=== PATIENT | male | born 1965 | race African-American/Black ===

== ENCOUNTER 2019-03-28 18:44 | Emergency (ER) | payer MEDICARE ==
[~2019-03-28] VITALS: Ht 182.9 cm; Wt 63.5 kg
[2019-03-28 18:44] VITALS: BP 175/90
--- NOTE | 2019-03-28 18:44 | NUR ---
ED Nurse Note: PT BROUGHT IN BY RA 826 FROM HOME CAME IN DUE TO ABD PAIN WITH N/V THAT STARTED 1200 NOON TODAY. DENIES DIARRHEA AND STATES HE USED COCAINE YESTERDAY MORNING. AAO X4, FOLLOWS COMMANDS. NO ACTIVE VOMITING AT THIS TIME.
--- NOTE | 2019-03-28 19:00 | Emergency Room Report ---
History of Present Illness General Chief Complaint: Nausea, Vomiting, and Diarrhea Source: Patient Present Illness HPI Disclaimer: Please note that this report is being documented using DRAGON technology. This can lead to erroneous entry secondary to incorrect interpretation by the dictating instrument. HPI: 53-year-old male with a history of HIV on HAART, asthma, CAD with reported stenting x2 presents for evaluation of abdominal pain and vomiting. Symptoms began this afternoon. The patient states he has been using crack cocaine which he has done for many years and was checking himself into rehabilitation program at [facility]. There was no space available though he did receive a sandwich for lunch. He states that immediately after eating the sandwich he began to feel nausea and persistent nonbloody, nonbilious emesis. He denies diarrhea but feels that it could "come on any minutes." He notes upper abdominal cramping but no significant pain in the lower quadrants. Denies dysuria or hematuria. Denies flank pain. He denies chest pain, shortness of breath, fevers. He reports chills. PMH: HIV, asthma, CAD PSH: Cardiac stent x2 Allergies: Denies Social Hx: Regular cocaine use, denies alcohol or tobacco use Allergies: Coded Allergies: No Known Allergies (Unverified , 03/28/19) Nursing Documentation-PMH Hx Hypertension: Yes Hx Asthma: Yes Review of Systems All Other Systems: negative except mentioned in HPI Physical Exam Vital Signs Date Time Temp Pulse Resp B/P (MAP) Pulse Ox O2 Delivery O2 Flow Rate FiO2 03/28/19 18:32 100.6 89 16 142/76 (98) 99 Room Air General: Awake and alert, no acute distress, febrile HEENT: NC/AT. EOMI. Cardiovascular: RRR. S1 and S2 normal. No murmur appreciated Resp: Normal work of breathing. No cough, wheezing or crackles appreciated Abdomen: Abdomen is soft, nondistended. Mild guarding in the upper quadrants. No rebound. Negative Borges's. Skin: Intact. No abrasions, laceration or rash over the exposed skin MSK: Normal tone and bulk. Moving all extremities. No obvious deformity. Neuro: Awake and alert. Mentating appropriately. Medical Decision Making Diagnostic Impression: Primary Impression: Nausea, vomiting, and diarrhea ER Course 53-year-old male with history of HIV, substance abuse, asthma and CAD presents for evaluation of sudden onset nausea and vomiting shortly after eating a sandwich earlier today. He arrives with slight elevation in his body temperature at 100.4 F however he is wearing multiple layers and shivering in bed complaining of significant Reiger since his symptom onset. Vital signs are otherwise within normal limits. He was resting comfortably on my evaluation and asking for something to drink noting significant dehydration. Will obtain labs, start IV fluids, provide antiemetics. We will also obtain an EKG given his history of heart disease as this may be an atypical presentation. EKG Diagnostic Results EKG Time: 19:01 Rate: normal Rhythm: NSR ST Segments: no acute changes Other Impression Sinus rhythm, normal axis, normal intervals, no acute ST segment changes. There are Q waves in the inferior leads, II, room 3, aVF as well as V3 through V6 consistent with prior infarct though age-indeterminate. Rhythm Strip Diag. Results Rhythm Strip Time: 19:01 EP Interpretation: yes Rate: 80s Rhythm: NSR, no PVC's, no ectopy Reevaluation Time: 21:36 Last Vital Signs Date Time Temp Pulse Resp B/P (MAP) Pulse Ox O2 Delivery O2 Flow Rate FiO2 03/28/19 18:32 100.6 89 16 142/76 (98) 99 Room Air Reevaluation Impression Labs have returned within normal limits. No significant white count, no electro light abnormalities. Liver function is unremarkable as his kidney function. No evidence of gross urinary tract infection. Patient's tox screen shows no alcohol, no salicylates, no Tylenol. Tox screen positive for cocaine to which the patient admits. He reports feeling much better after receiving antiemetics and IV fluids. Likely, this is a viral syndrome which should improve over the next few days peer he will be discharged home with outpatient follow-up and continued antiemetics. I encouraged him to stay hydrated by drinking plenty of fluids and I discussed this treatment plan with the patient' s mother who is now at bedside as well. We also discussed reasons to return to the emergency department. He understands and agrees with the treatment plan will be discharged home. Disposition: HOME, SELF-CARE Condition: Improved Scripts Ondansetron Odt* (ZOFRAN ODT*) 4 Mg Tab.rapdis 4 MG BC EVERY 6 HOURS PRN for Nausea & Vomiting, #20 TAB 0 Refills Prov: Prasanna Meza MD 03/28/19 Prasanna Meza MD Mar 28, 2019 19:00
--- NOTE | 2019-03-28 19:02 | NUR ---
ED Nurse Note: COLLECTED BLOOD THEN SENT TO LAB.
--- NOTE | 2019-03-28 19:39 | NUR ---
HAND-OFF: Report given to PEDRO FRENCH.
[2019-03-28 20:11] LABS: BASOPHILS % (AUTO) 0.4 % (0.0-2.0); EOSINOPHILS % (AUTO) 6.4 % (0.0-3.0); HEMATOCRIT 41.1 % (42.0-52.0); HEMOGLOBIN 14.1 G/DL (14.2-18.0); LYMPHOCYTES % (AUTO) 5.7 % (20.0-45.0); MEAN CORPUSCULAR VOLUME 95 FL (80-99); MONOCYTES % (AUTO) 4.9 % (1.0-10.0); NEUTROPHILS % (AUTO) 82.5 % (45.0-75.0); PLATELET COUNT 197 K/UL (150-450); RED BLOOD COUNT 4.31 M/UL (4.70-6.10); RED CELL DISTRIBUTION WIDTH 11.2 % (11.6-14.8); WHITE BLOOD COUNT 8.9 K/UL (4.8-10.8)
[2019-03-28 20:20] LABS: ANION GAP 8 mmol/L (5-15); BLOOD UREA NITROGEN 19 mg/dL (7-18); CALCIUM 8.9 MG/DL (8.5-10.1); CARBON DIOXIDE 29 MMOL/L (21-32); CHLORIDE 107 MMOL/L (98-107); CREATININE 1.1 MG/DL (0.55-1.30); POTASSIUM 4.1 MMOL/L (3.5-5.1); SODIUM 144 MMOL/L (136-145)
[2019-03-28 20:24] LABS: ALANINE AMINOTRANSFERASE 13 U/L (12-78); ALBUMIN 3.3 G/DL (3.4-5.0); ALBUMIN/GLOBULIN RATIO 0.8 (1.0-2.7); ALKALINE PHOSPHATASE 88 U/L (46-116); ASPARTATE AMINO TRANSFERASE 25 U/L (15-37); BILIRUBIN,TOTAL 0.3 MG/DL (0.2-1.0)
[2019-03-28 20:58] LABS: APPEARANCE,URINE CLEAR; BILIRUBIN, URINE NEGATIVE (NEGATIVE); COLOR,URINE PALE YELLOW; GLUCOSE, URINE (UA) NEGATIVE (NEGATIVE); KETONES,URINE NEGATIVE (NEGATIVE); LEUKOCYTE ESTERASE ,URINE NEGATIVE (NEGATIVE); NITRITE,URINE NEGATIVE (NEGATIVE); PH,URINE 8 (4.5-8.0); PROTEIN,URINE NEGATIVE (NEGATIVE); UROBILINOGEN,URINE NORMAL MG/DL (0.0-1.0)
[2019-03-28] MEDS ORDERED: ONDANSETRON ODT4 MG BC (21:33)
[2019-03-28 21:45] VITALS: BP 175/90
--- NOTE | 2019-03-28 21:45 | NUR ---
ER DISCHARGE NOTE: Patient is cleared to be discharged per ERMD, pt is aox4, on room air, with stable vital signs. pt was given dc and prescription instructions, pt was able to verbalize understanding, pt id band and iv site removed without complications. pt is able to ambulate with steady gait. pt took all belongings.
--- NOTE | 2019-03-30 15:23 | Cardiology Report ---
APPROVED REPORT EKG Measurement Heart [id number] Normal sinus rhythm Cannot rule out Anterior infarct, age undetermined Abnormal ECG
== END 2019-03-28 21:45 | disposition home or self-care (01) ==
LOC: EDBD 18:44 → EMR 20:45
DX: R11.2 Nausea with vomiting, unspecified (principal); R19.7 Diarrhea, unspecified; B20 Human immunodeficiency virus [HIV] disease; I10 Essential (primary) hypertension; Z95.5 Presence of coronary angioplasty implant and graft; I25.10 Atherosclerotic heart disease of native coronary artery without angina pectoris; I11.9 Hypertensive heart disease without heart failure
CPT/HCPCS: 36415; 80053; 80307; 81003; 83690; 84484; 85025; 93005; 96361; 96374; 99284; G0480; J2405; J7030

== ENCOUNTER 2019-05-17 17:32 | Inpatient (IN) | payer MEDICARE, OTHER ==
[~2019-05-17] VITALS: Ht 182.9 cm; Wt 70.3 kg
[~2019-05-17 17:32] MED LIST: ONDANSETRON ODT4 MG BC
--- NOTE | 2019-05-17 17:32 | NUR ---
ED Nurse Note: Pt was BIBA from home with the c/o Hip and back pain with 7/10 pain scale. Per pt, he had a fall few days ago. Pt has hx of HIV, HTN. AOx3; calm and cooperative. Placed on bed and gown, hooked to laboratory monitor. VSS; no signs of acute distress. Will continue to monitor.
--- NOTE | 2019-05-17 18:05 | Emergency Room Report ---
History of Present Illness General Chief Complaint: Lower Extremity Injury Source: Patient Present Illness HPI 53-year-old male history of hypertension, hyperlipidemia, stents, presents with right hip pain, multiple falls, shortness of breath, and vague chest pain x3 days, aggravated with exertion alleviated with rest severity is moderate, constant patient presents for evaluation Allergies: Coded Allergies: No Known Allergies (Unverified , 03/28/19) Patient History Past Medical History: see triage record Reviewed Nursing Documentation: PMH: Agreed; PSxH: Agreed Nursing Documentation-PMH Past Medical History: No History, Except For Hx Hypertension: Yes Hx Asthma: Yes Review of Systems All Other Systems: negative except mentioned in HPI Physical Exam Vital Signs Date Time Temp Pulse Resp B/P (MAP) Pulse Ox O2 Delivery O2 Flow Rate FiO2 05/17/19 17:28 97.9 111 18 128/78 (95) 96 Room Air Sp02 EP Interpretation: reviewed, normal General Appearance: well appearing, no apparent distress, alert Head: normocephalic, atraumatic Eyes: bilateral eye PERRL, bilateral eye EOMI ENT: uvula midline, moist mucus membranes Neck: supple, thyroid normal, supple/symm/no masses Respiratory: lungs clear, no respiratory distress, no retraction, no accessory muscle use Cardiovascular #1: normal peripheral pulses, regular rate, rhythm, no edema, no gallop, no murmur Gastrointestinal: non tender, soft, no guarding, no rebound Musculoskeletal: normal inspection Neurologic: alert, oriented x3 Psychiatric: mood/affect normal Skin: no rash, warm/dry Medical Decision Making Diagnostic Impression: Primary Impression: Chest pain Qualified Codes: R07.9 - Chest pain, unspecified ER Course 53-year-old male presents with atypical chest pain, aspirin given, patient also with hip pain, differential diagnosis for chest pain includes ACS, pneumonia, pneumothorax, patient with hip pain which may be arthritis versus fracture X-ray of the hip is negative, patient has a positive drug screen Patient will be admitted for ACS rule out Patient admitted to Dr. Holguin Procedure: XRAY Bilateral Hip w/AP Pelvis History: PAIN 3 total images; AP view of the pelvis, frog leg lateral of the right and frog-leg lateral of the left hip Exam: XR LEFT HIP Comparison: None available FINDINGS: No fracture or dislocation. The joint spaces appear within limits. Symmetric appearing SI joints and pubic symphysis appear within limits. IMPRESSION: No fracture or dislocation. Exam: XR RIGHT HIP Comparison: None available FINDINGS: No fracture or dislocation. The joint space appears within limits. IMPRESSION: No fracture or dislocation. Dictated By: Mayank Mueller MD Electronically Signed By: Mayank Mueller MD Signed Date/Time 05/17/19 [id number] CC: Doron Luke MD Laboratory Tests Test 05/17/19 17:55 White Blood Count 7.1 K/UL (4.8-10.8) Red Blood Count 4.42 M/UL (4.70-6.10) L Hemoglobin 14.9 G/DL (14.2-18.0) Hematocrit 43.6 % (42.0-52.0) Mean Corpuscular Volume 99 FL (80-99) Mean Corpuscular Hemoglobin 33.7 PG (27.0-31.0) H Mean Corpuscular Hemoglobin Concent 34.1 G/DL (32.0-36.0) Red Cell Distribution Width 12.3 % (11.6-14.8) Platelet Count 144 K/UL (150-450) L Mean Platelet Volume 7.2 FL (6.5-10.1) Neutrophils (%) (Auto) 49.0 % (45.0-75.0) Lymphocytes (%) (Auto) 32.1 % (20.0-45.0) Monocytes (%) (Auto) 8.6 % (1.0-10.0) Eosinophils (%) (Auto) 9.4 % (0.0-3.0) H Basophils (%) (Auto) 0.9 % (0.0-2.0) Sodium Level 137 MMOL/L (136-145) Potassium Level 3.7 MMOL/L (3.5-5.1) Chloride Level 102 MMOL/L (98-107) Carbon Dioxide Level 25 MMOL/L (21-32) Anion Gap 10 mmol/L (5-15) Blood Urea Nitrogen 23 mg/dL (7-18) H Creatinine 1.3 MG/DL (0.55-1.30) Estimate Glomerular Filtration Rate > 60 mL/min (>60) Glucose Level 97 MG/DL (74-106) Calcium Level 8.9 MG/DL (8.5-10.1) Total Bilirubin 0.5 MG/DL (0.2-1.0) Aspartate Amino Transferase (AST) 30 U/L (15-37) Alanine Aminotransferase (ALT) 14 U/L (12-78) Alkaline Phosphatase 90 U/L (46-116) Troponin I 0.010 ng/mL (0.000-0.056) Total Protein 7.8 G/DL (6.4-8.2) Albumin 3.6 G/DL (3.4-5.0) Globulin 4.2 g/dL Albumin/Globulin Ratio 0.9 (1.0-2.7) L Lipase 119 U/L (73-393) Urine Opiates Screen Negative (NEGATIVE) Urine Barbiturates Screen Negative (NEGATIVE) Phencyclidine (PCP) Screen Negative (NEGATIVE) Urine Amphetamines Screen Negative (NEGATIVE) Urine Benzodiazepines Screen Negative (NEGATIVE) Urine Cocaine Screen Positive (NEGATIVE) H Urine Marijuana (THC) Screen Negative (NEGATIVE) EKG Diagnostic Results EKG Time: 18:20 EP Interpretation: SR, rate 91, QTc 487, no acute ST elevations, normal axis Rhythm Strip Diag. Results Rhythm Strip Time: 20:34 EP Interpretation: yes Rate: 72 Rhythm: NSR, no PVC's, no ectopy Chest X-Ray Diagnostic Results Chest X-Ray Diagnostic Results : Chest X-Ray Ordered: Yes # of Views/Limited/Complete: 1 View Indication: Chest Pain EP Interpretation: Yes Interpretation: no consolidation, no effusion, no pneumothorax, no acute cardiopulmonary disease Impression: No acute disease Electronically Signed by: Doron Luke MD Last Vital Signs Date Time Temp Pulse Resp B/P (MAP) Pulse Ox O2 Delivery O2 Flow Rate FiO2 05/17/19 17:28 97.9 111 18 128/78 (95) 96 Room Air Disposition: ADMITTED INPATIENT Condition: Stable Doron Luke MD May 17, 2019 18:05
--- NOTE | 2019-05-17 18:16 | NUR ---
ED Nurse Note: X-ray on bedside.
--- NOTE | 2019-05-17 18:20 | NUR ---
ED Nurse Note: X-ray done.
[2019-05-17 18:33] LABS: BASOPHILS % (AUTO) 0.9 % (0.0-2.0); EOSINOPHILS % (AUTO) 9.4 % (0.0-3.0); HEMATOCRIT 43.6 % (42.0-52.0); HEMOGLOBIN 14.9 G/DL (14.2-18.0); LYMPHOCYTES % (AUTO) 32.1 % (20.0-45.0); MEAN CORPUSCULAR VOLUME 99 FL (80-99); MONOCYTES % (AUTO) 8.6 % (1.0-10.0); PLATELET COUNT 144 K/UL (150-450); RED BLOOD COUNT 4.42 M/UL (4.70-6.10); RED CELL DISTRIBUTION WIDTH 12.3 % (11.6-14.8); WHITE BLOOD COUNT 7.1 K/UL (4.8-10.8)
--- NOTE | 2019-05-17 18:34 | Diagnostic Imaging Report ---
History: PAIN Exam: XR CXR 1 VIEW Comparison: None available FINDINGS: The lungs are clear. The cardiac and mediastinal contours are within limits. The visualized osseous structures appear within limits. IMPRESSION: No evidence of acute disease.
--- NOTE | 2019-05-17 18:40 | Diagnostic Imaging Report ---
History: PAIN 3 total images; AP view of the pelvis, frog leg lateral of the right and frog-leg lateral of the left hip Exam: XR LEFT HIP Comparison: None available FINDINGS: No fracture or dislocation. The joint spaces appear within limits. Symmetric appearing SI joints and pubic symphysis appear within limits. IMPRESSION: No fracture or dislocation. Exam: XR RIGHT HIP Comparison: None available FINDINGS: No fracture or dislocation. The joint space appears within limits. IMPRESSION: No fracture or dislocation.
[2019-05-17 18:45] LABS: ANION GAP 10 mmol/L (5-15); BLOOD UREA NITROGEN 23 mg/dL (7-18); CALCIUM 8.9 MG/DL (8.5-10.1); CARBON DIOXIDE 25 MMOL/L (21-32); CHLORIDE 102 MMOL/L (98-107); CREATININE 1.3 MG/DL (0.55-1.30); POTASSIUM 3.7 MMOL/L (3.5-5.1); SODIUM 137 MMOL/L (136-145)
[2019-05-17 18:49] LABS: ALANINE AMINOTRANSFERASE 14 U/L (12-78); ALBUMIN 3.6 G/DL (3.4-5.0); ALBUMIN/GLOBULIN RATIO 0.9 (1.0-2.7); ALKALINE PHOSPHATASE 90 U/L (46-116); ASPARTATE AMINO TRANSFERASE 30 U/L (15-37); BILIRUBIN,TOTAL 0.5 MG/DL (0.2-1.0)
--- NOTE | 2019-05-17 19:11 | NUR ---
HAND-OFF: Report given to Lanny FRENCH.
[2019-05-17 19:15] VITALS: BP 114/72
--- NOTE | 2019-05-17 19:15 | NUR ---
ED Nurse Note: Report received from MANOLO Saucedo and was endorsed care. No acute distress noted at this time, pt is aaox4. Pt resting comfortably in bed. 22g IV in L foreram is patent and intact. Will continue to monitor. Vss as charted.
--- NOTE | 2019-05-17 19:30 | NUR ---
ED Nurse Note: Pt c/o 11/28 pain at this time. Pt requesting pain medication. ERMD notified. Will follow out order.
[2019-05-17] MEDS ORDERED: fentaNYL 100 mcg/2 mL IV ONE (19:45)
[2019-05-17 20:00] VITALS: BP 132/76
--- NOTE | 2019-05-17 20:30 | NUR ---
ED Nurse Note: Report given to MANOLO Valdez.
--- NOTE | 2019-05-17 20:40 | NUR ---
ED Nurse Note: Pt taken to tele unit by RN and tech via vargas. Pt stable at this time. Pt is aaox4, no cardiac or respiratory distress noted. Pt belongings sent with patient.
--- NOTE | 2019-05-17 20:45 | NUR ---
NURSE NOTES: Received pt to unit. In no acute distress. Sitting up in bed, bed is locked in lowest position., side rails x2, monitoring coordinator applied. Call light in reach. Contacted MD for admitting orders. will continue to monitor. oriented patient to unit, belongings signed.
[2019-05-17] MEDS ORDERED: LIPITOR80 MG ORAL (21:42)
[2019-05-17] MEDS ORDERED: ALBUTEROL2.5 MG/3 M INH (21:42)
[2019-05-17] MEDS ORDERED: QUETIAPINE FUMA25 MG ORAL (21:42)
[2019-05-17] MEDS ORDERED: descovy (21:42)
[2019-05-17] MEDS ORDERED: LISINOPRIL20 MG ORAL (21:42)
[2019-05-17] MEDS ORDERED: TIVICAY50 MG ORAL (21:42)
[2019-05-18] VITALS: BP 118/85
[2019-05-18 04:44] VITALS: BP 111/59
[2019-05-18 06:50] LABS: BASOPHILS % (AUTO) 0.9 % (0.0-2.0); EOSINOPHILS % (AUTO) 13.8 % (0.0-3.0); HEMATOCRIT 41.5 % (42.0-52.0); HEMOGLOBIN 13.8 G/DL (14.2-18.0); LYMPHOCYTES % (AUTO) 40.8 % (20.0-45.0); MEAN CORPUSCULAR VOLUME 99 FL (80-99); NEUTROPHILS % (AUTO) 31.5 % (45.0-75.0); PLATELET COUNT 139 K/UL (150-450); RED BLOOD COUNT 4.21 M/UL (4.70-6.10); RED CELL DISTRIBUTION WIDTH 13.8 % (11.6-14.8); WHITE BLOOD COUNT 6.5 K/UL (4.8-10.8)
--- NOTE | 2019-05-18 07:05 | NUR ---
NURSE NOTES: Report received from MANOLO Quiroz. Pt. AOx4. In RA. Denies any pain or SOB. L FA 22g IV intact, SL. Bed on lowest position, side rails upx2, brakes engaged. Call light within easy reach. Fall education given. Plan of care communicated.
--- NOTE | 2019-05-18 07:05 | NUR ---
HAND-OFF: Report given to MANOLO Bullard.
[2019-05-18 07:10] LABS: ALANINE AMINOTRANSFERASE 17 U/L (12-78); ALBUMIN 3.3 G/DL (3.4-5.0); ALBUMIN/GLOBULIN RATIO 0.8 (1.0-2.7); ALKALINE PHOSPHATASE 72 U/L (46-116); ASPARTATE AMINO TRANSFERASE 29 U/L (15-37); BILIRUBIN,TOTAL 0.5 MG/DL (0.2-1.0); BLOOD UREA NITROGEN 23 mg/dL (7-18); CALCIUM 8.8 MG/DL (8.5-10.1); CHLORIDE 106 MMOL/L (98-107); CREATININE 1.2 MG/DL (0.55-1.30); POTASSIUM 4.1 MMOL/L (3.5-5.1); SODIUM 140 MMOL/L (136-145)
[2019-05-18 07:39] LABS: CARBON DIOXIDE 28 MMOL/L (21-32)
[2019-05-18 08:33] VITALS: BP 107/68
[2019-05-18 12:00] VITALS: BP 130/81
--- NOTE | 2019-05-18 14:54 | NUR ---
PT Note PT adrian completed. Patient is able to ambulate independently without any AD. He has a steady gait. No f/u PT treatment recommended at this time. Addendum: 05/18/19 at 1455 by ERIC LARIOS PT Amended: Links added.
--- NOTE | 2019-05-18 15:46 | Cardiac Electrophysiology PN ---
Subjective Subjective [id number]. CP . Cocaine use Objective Last 24 Hour Vital Signs Date Time Temp Pulse Resp B/P (MAP) Pulse Ox O2 Delivery O2 Flow Rate FiO2 05/18/19 12:00 97.8 78 18 130/81 (97) 95 05/18/19 12:00 83 05/18/19 09:00 Room Air 05/18/19 08:33 98.1 78 18 107/68 (81) 96 05/18/19 08:00 82 05/18/19 04:44 97.6 76 18 111/59 (76) 96 05/18/19 04:00 74 05/18/19 03:54 Room Air 05/18/19 00:00 97.6 86 18 118/85 (96) 95 05/18/19 00:00 87 05/17/19 20:40 98.2 90 13 127/73 95 Room Air 05/17/19 20:00 97.6 87 18 132/76 (94) 96 05/17/19 19:15 97.9 97 17 114/72 96 Room Air 05/17/19 17:28 97.9 111 18 128/78 (95) 96 Room Air Intake and Output 05/17/19 05/18/19 19:00 07:00 # Voids 1 1 Laboratory Tests Test 05/17/19 17:55 05/18/19 05:20 White Blood Count 7.1 K/UL (4.8-10.8) 6.5 K/UL (4.8-10.8) Red Blood Count 4.42 M/UL (4.70-6.10) L 4.21 M/UL (4.70-6.10) L Hemoglobin 14.9 G/DL (14.2-18.0) 13.8 G/DL (14.2-18.0) L Hematocrit 43.6 % (42.0-52.0) 41.5 % (42.0-52.0) L Mean Corpuscular Volume 99 FL (80-99) 99 FL (80-99) Mean Corpuscular Hemoglobin 33.7 PG (27.0-31.0) H 32.7 PG (27.0-31.0) H Mean Corpuscular Hemoglobin Concent 34.1 G/DL (32.0-36.0) 33.2 G/DL (32.0-36.0) Red Cell Distribution Width 12.3 % (11.6-14.8) 13.8 % (11.6-14.8) Platelet Count 144 K/UL (150-450) L 139 K/UL (150-450) L Mean Platelet Volume 7.2 FL (6.5-10.1) 6.5 FL (6.5-10.1) Neutrophils (%) (Auto) 49.0 % (45.0-75.0) 31.5 % (45.0-75.0) L Lymphocytes (%) (Auto) 32.1 % (20.0-45.0) 40.8 % (20.0-45.0) Monocytes (%) (Auto) 8.6 % (1.0-10.0) 13.0 % (1.0-10.0) H Eosinophils (%) (Auto) 9.4 % (0.0-3.0) H 13.8 % (0.0-3.0) H Basophils (%) (Auto) 0.9 % (0.0-2.0) 0.9 % (0.0-2.0) Sodium Level 137 MMOL/L (136-145) 140 MMOL/L (136-145) Potassium Level 3.7 MMOL/L (3.5-5.1) 4.1 MMOL/L (3.5-5.1) Chloride Level 102 MMOL/L (98-107) 106 MMOL/L (98-107) Carbon Dioxide Level 25 MMOL/L (21-32) 28 MMOL/L (21-32) Anion Gap 10 mmol/L (5-15) Blood Urea Nitrogen 23 mg/dL (7-18) H 23 mg/dL (7-18) H Creatinine 1.3 MG/DL (0.55-1.30) 1.2 MG/DL (0.55-1.30) Estimat Glomerular Filtration Rate > 60 mL/min (>60) > 60 mL/min (>60) Glucose Level 97 MG/DL (74-106) 92 MG/DL (74-106) Calcium Level 8.9 MG/DL (8.5-10.1) 8.8 MG/DL (8.5-10.1) Total Bilirubin 0.5 MG/DL (0.2-1.0) 0.5 MG/DL (0.2-1.0) Aspartate Amino Transf (AST/SGOT) 30 U/L (15-37) 29 U/L (15-37) Alanine Aminotransferase (ALT/SGPT) 14 U/L (12-78) 17 U/L (12-78) Alkaline Phosphatase 90 U/L (46-116) 72 U/L (46-116) Troponin I 0.010 ng/mL (0.000-0.056) Total Protein 7.8 G/DL (6.4-8.2) 7.3 G/DL (6.4-8.2) Albumin 3.6 G/DL (3.4-5.0) 3.3 G/DL (3.4-5.0) L Globulin 4.2 g/dL 4.0 g/dL Albumin/Globulin Ratio 0.9 (1.0-2.7) L 0.8 (1.0-2.7) L Lipase 119 U/L (73-393) Urine Opiates Screen Negative (NEGATIVE) Urine Barbiturates Screen Negative (NEGATIVE) Phencyclidine (PCP) Screen Negative (NEGATIVE) Urine Amphetamines Screen Negative (NEGATIVE) Urine Benzodiazepines Screen Negative (NEGATIVE) Urine Cocaine Screen Positive (NEGATIVE) H Urine Marijuana (THC) Screen Negative (NEGATIVE) Mateo Schafer MD May 18, 2019 15:46
[2019-05-18] MEDS ORDERED: Lexiscan 0.4mg/5ml syringe IV PRN (15:50)
[2019-05-18 16:00] VITALS: BP 121/73
--- NOTE | 2019-05-18 18:30 | Consultation ---
DATE OF CONSULTATION: 05/18/2019 CARDIOLOGY CONSULTATION CONSULTING PHYSICIAN: Mateo Schafer M.D. REFERRING PHYSICIAN: Karlos Holguin M.D. REASON FOR CONSULTATION: Chest pain in the patient with hypertension. HISTORY OF PRESENT ILLNESS: The patient is a 53-year-old gentleman with history of hypertension, hyperlipidemia, history of coronary artery disease, prior stent placement at [facility] in April 2017, who presented with the right hip pain with multiple falls with shortness of breath as well as vague chest pain for 3 days. The patient stated that the pain is worse with exertion and alleviated with rest. At the time of my evaluation, the patient is however quite comfortable. His EKG showed no acute ST-T wave abnormality and the blood pressure was stable in the emergency room. The patient however was tachycardic with the heart rate of 111. At the time of my evaluation, the patient denies any chest pain or shortness of breath. REVIEW OF SYSTEMS: Negative other than what was mentioned in the history of present illness. PAST MEDICAL HISTORY: As mentioned above as well as asthma. FAMILY HISTORY: Noncontributory. SOCIAL HISTORY: He lives at home. Denies smoking or drinking alcohol. PHYSICAL EXAMINATION: VITAL SIGNS: Show blood pressure of 130/81, pulse 78, respirations 18, and temperature 97.8. HEAD AND NECK: Showed no JVD. LUNGS: Clear. CARDIOVASCULAR: Shows regular S1 and S2 with no gallop or murmur. ABDOMEN: Soft. EXTREMITIES: No pitting edema. LABORATORY AND DIAGNOSTIC DATA: His labs show white count of 6.5, hemoglobin 13.2, hematocrit of 41.5, and platelet count 139,000. Sodium 140, potassium is 4.1, BUN of 23, creatinine 1.4, and glucose of 92. Troponin is negative. His urine toxicology screen is positive for cocaine. ASSESSMENT AND PLAN: 1. Chest pain in the patient with history of coronary artery disease and prior stent placement. His urine toxicology is also positive for cocaine. We will completely rule out myocardial infarction protocol. Repeat EKG and get an echocardiogram for further evaluation. Avoid beta-vaishnavi in view of active cocaine use. Keep the patient on aspirin and use Cardizem at this time and give the patient statin. We will also try to get the records from previous cardiac catheterization at [facility]. 2. Hypertension. We will start the patient on Cardizem. 3. Active cocaine use. 4. Dizziness. 5. Right hip pain status post multiple falls. The x-ray of the hip was negative. Thank you very much, Dr. Holguin, for allowing me to participate in the care of this patient. Please do not hesitate to contact me for any questions regarding my evaluation. Mateo Schafer M.D. DR: CASSIDY JOB#: [id number] CC:
--- NOTE | 2019-05-18 19:30 | NUR ---
Received patient from nurse Aleah FRENCH. Resting on bed. Denies chest pains nor other discomfort at this time Will continue with plan of care. Noted, ambulates with steady gait.
--- NOTE | 2019-05-18 19:35 | NUR ---
HAND-OFF: Report given to CN. Lisbeth PtOlivia in stable condition. Plan of care endorsed.
[2019-05-18 20:00] VITALS: BP 122/79
[2019-05-18] MEDS: Atorvastatin 80mg tab ORAL SCH (20:47)
--- NOTE | 2019-05-18 21:15 | History and Physical Report ---
DATE OF ADMISSION: 05/17/2019 HISTORY OF PRESENT ILLNESS: The patient admitted for chest pain, rule out acute coronary syndrome. The patient states that he has chest pain that is made worse by exertion and moving. It has been going on for about a week and does not radiate, comes and goes. Denies associated symptoms of palpitation, shortness of breath, diaphoresis, or radiation. The patient is also ataxic, fell about three days ago and complains of low back pain as well as the hip pain. The patient is unsteady and is going to need physical therapy evaluation. The patient has colicky abdominal pain and sometimes has diarrhea as well. The patient has a high risk for ND. The patient has four stents according to him. Denies orthopnea. Denies shortness of breath. Denies wheezing. Denies cough. PAST MEDICAL HISTORY: CAD, history of hypertension, hyperlipidemia, ataxia, low back pain. PAST SURGICAL HISTORY: Stents x4. SOCIAL HISTORY: History of smoking, history of drug abuse. No history of alcohol abuse. Family unable to take care of him at home. ALLERGIES: No known allergies. MEDICATIONS: Lipitor, albuterol, lisinopril, and p.r.n. FAMILY HISTORY: Does have history of hypertension. REVIEW OF SYSTEMS: HEENT: Denies headaches. RESPIRATORY: Denies shortness of breath. Denies cough. CARDIOVASCULAR: Reports chest pain for about a week. No radiation. No orthopnea. No palpitation. No shortness of breath. Chest pain is made worse by exertion. GASTROINTESTINAL: Denies nausea or vomiting. Does have colicky abdominal pain at times and sometimes has diarrhea. No rectal bleeding. No heartburn. EXTREMITIES: Complains of the right hip pain and back pain. CENTRAL NERVOUS SYSTEM: No change in speech pattern, status post fall three days ago and feels dizzy at times. PHYSICAL EXAMINATION: VITAL SIGNS: Temperature is 97.6, pulse is 87, blood pressure 132/76. HEENT: PERRLA. NECK: Supple. No lymphadenopathy. CHEST: Clear to auscultation. CARDIOVASCULAR: Regular rate and rhythm. No murmurs or extra sounds. GASTROINTESTINAL: Soft, nontender, nondistended. No organomegaly. EXTREMITIES: No edema. Decreased range of motion at the right hip due to pain. However, if the patient is able to ambulate, the patient is somewhat ataxic. Reflexes equal in both sides. Moves all four extremities. LABORATORY DATA: WBC of 7.1, hemoglobin 14.9, and platelets of 144. Sodium 137, potassium 3.7, BUN of 23, creatinine 1.3. Troponin of 0.01. EKG, no ST elevation. ASSESSMENT AND PLAN: Chest pain, rule out acute coronary syndrome. The patient has had risk factor of stent in the past as well as hypertension and age as his risk factors. Dr. Schafer has been consulted as well as Dr. Wagner for pain management and we will monitor the patient closely and we will also consult GI for his GI symptoms. Karlos Holguin M.D. DR: CONTSANTIN JOB#: [id number] CC:
[2019-05-18] MEDS: dilTIAZem HCl 30mg tab ORAL SCH (21:24)
[2019-05-19] VITALS: BP 152/86
[2019-05-19 04:00] VITALS: BP 131/70
[2019-05-19] MEDS: dilTIAZem HCl 30mg tab ORAL SCH ×4 (06:00→21:24)
--- NOTE | 2019-05-19 07:45 | NUR ---
CHARGE NURSE NOTES: Pt awake/alert supine in bed watching TV, breathing easily on room air, no acc. muscle use, speaking in full sentences. Lungs clear bilaterally. Vital signs stable with SR @ 75 on monitor. IV access left forearm, flushed with 10 ml NS and locked. Bed left in low position, side rails up x 2 and call light left near pt's hand.
[2019-05-19 08:00] VITALS: BP 122/63
[2019-05-19] MEDS: Aspirin Baby 81mg ORAL SCH (09:24)
[2019-05-19 12:00] VITALS: BP 119/75
--- NOTE | 2019-05-19 14:23 | Cardiac Electrophysiology PN ---
Assessment/Plan Assessment/Plan 1. Chest pain in the patient with history of coronary artery disease and prior stent placement. His urine toxicology is also positive for cocaine. Ruled out for myocardial infarction . Echocardiogram pending. Avoid beta- vaishnavi in view of active cocaine use. Keep the patient on aspirin , Cardizem and Lipitor. Awaiting records from previous cardiac catheterization at [facility]. Scheduled for nuclear stress test in am. 2. Hypertension. On Cardizem. 3. Active cocaine use. 4. Dizziness. 5. Right hip pain status post multiple falls. The x-ray of the hip was negative. WINIFRED RN Subjective Subjective No more CP. Scheduled for stress test tomorrow Objective Last 24 Hour Vital Signs Date Time Temp Pulse Resp B/P (MAP) Pulse Ox O2 Delivery O2 Flow Rate FiO2 05/19/19 12:00 75 05/19/19 08:13 Room Air 05/19/19 08:00 98.1 75 18 122/63 (82) 96 05/19/19 08:00 75 05/19/19 06:00 71 131/70 05/19/19 04:00 97.7 69 18 131/70 (90) 95 05/19/19 04:00 73 05/19/19 00:00 98.1 79 18 152/86 (108) 98 05/19/19 00:00 74 05/18/19 21:24 75 122/79 05/18/19 21:00 Room Air 05/18/19 20:00 86 05/18/19 20:00 97.9 80 20 122/79 (93) 97 05/18/19 16:00 97.9 76 18 121/73 (89) 98 05/18/19 16:00 114 Intake and Output 05/18/19 05/19/19 19:00 07:00 Intake Total 380 ml Output Total 900 ml Balance -520 ml Intake Oral 380 ml Output Urine Total 900 ml # Voids 3 Laboratory Tests Test 05/18/19 18:55 05/19/19 03:50 Troponin I 0.021 ng/mL (0.000-0.056) 0.007 ng/mL (0.000-0.056) Objective HEAD AND NECK: No JVD. LUNGS: Clear. CARDIOVASCULAR: Regular S1 and S2 with no gallop or murmur. ABDOMEN: Soft. EXTREMITIES: No pitting edema. Mateo Schafer MD May 19, 2019 14:23
--- NOTE | 2019-05-19 15:04 | NUR ---
NURSE NOTES: Report received from MANOLO Serrano. Pt is in stable condition at this time. No pain/SOB.
[2019-05-19 16:00] VITALS: BP 141/83
--- NOTE | 2019-05-19 19:21 | NUR ---
HAND-OFF: Report given to MANOLO Ortega. Pt is in stable condition; plan of care endorsed.
--- NOTE | 2019-05-19 19:49 | NUR ---
NURSE NOTES: RECEIVED PATIENT RESTING IN BED, NO COMPLAINTS OF PAIN AT THIS TIME. FALL PRECAUTIONS IN PLACE: CALL LIGHT, BEDSIDE TABLE AND URINAL WITHIN REACH, BED IN LOW POSITION. INSTRUCTED PATIENT ON NPO STATUS AFTER MIDNIGHT FOR STRESS TEST IN AM, PATIENT VERBALIZED UNDERSTANDING. WILL CONTINUE WITH PLAN OF CARE.
--- NOTE | 2019-05-19 19:56 | General Progress Note ---
Assessment/Plan Problem List: (1) Chest pain ICD Codes: R07.9 - Chest pain, unspecified SNOMED: 27141303 Qualifiers: Qualified Codes: R07.9 - Chest pain, unspecified Status: progressing Assessment/Plan: chest pain r/o acs afebrile check trop Subjective ROS Limited/Unobtainable: Yes Allergies: Coded Allergies: No Known Allergies (Unverified , 03/28/19) Objective Last 24 Hour Vital Signs Date Time Temp Pulse Resp B/P (MAP) Pulse Ox O2 Delivery O2 Flow Rate FiO2 05/19/19 16:00 70 05/19/19 16:00 96.8 74 18 141/83 (102) 98 05/19/19 14:00 75 122/63 05/19/19 12:00 75 05/19/19 12:00 97.9 76 19 119/75 (90) 98 05/19/19 08:13 Room Air 05/19/19 08:00 98.1 75 18 122/63 (82) 96 05/19/19 08:00 75 05/19/19 06:00 71 131/70 05/19/19 04:00 97.7 69 18 131/70 (90) 95 05/19/19 04:00 73 05/19/19 00:00 98.1 79 18 152/86 (108) 98 05/19/19 00:00 74 05/18/19 21:24 75 122/79 05/18/19 21:00 Room Air 05/18/19 20:00 86 05/18/19 20:00 97.9 80 20 122/79 (93) 97 Intake and Output 05/18/19 05/19/19 19:00 07:00 Intake Total 380 ml Output Total 900 ml Balance -520 ml Intake Oral 380 ml Output Urine Total 900 ml # Voids 3 Laboratory Tests 05/19/19 03:50: Troponin I 0.007 Height (Feet): 6 Height (Inches): 0.00 Weight (Pounds): 155 Cardiovascular: normal rate Respiratory/Chest: lungs clear Abdomen: soft Karlos Holguin MD May 19, 2019 19:56
[2019-05-19 20:00] VITALS: BP 137/86
--- NOTE | 2019-05-19 20:57 | Consultation ---
History of Present Illness General Date patient seen: May 19, 2019 Present Illness Allergies: Coded Allergies: No Known Allergies (Unverified , 03/28/19) Medication History Scheduled Atorvastatin (Lipitor), 80 MG ORAL BEDTIME, (Reported) Dolutegravir Sodium (Tivicay), 50 MG ORAL DAILY, (Reported) Lisinopril (Lisinopril*), 20 MG ORAL DAILY, (Reported) Quetiapine Fumarate* (Seroquel*), 25 MG ORAL DAILY, (Reported) Scheduled PRN Albuterol Sulfate* (Albuterol Sulfate Hhn*), 3 ML INH Q4H PRN for Shortness of Breath, (Reported) Ondansetron Odt* (Zofran Odt*), 4 MG BC EVERY 6 HOURS PRN for Nausea & Vomiting Miscellaneous Medications [descovy], (Reported) Patient History Healthcare decision maker N Resuscitation status Full Code Advanced Directive on File Physical Exam Last 24 Hour Vital Signs Date Time Temp Pulse Resp B/P (MAP) Pulse Ox O2 Delivery O2 Flow Rate FiO2 05/19/19 16:00 70 05/19/19 16:00 96.8 74 18 141/83 (102) 98 05/19/19 14:00 75 122/63 05/19/19 12:00 75 05/19/19 12:00 97.9 76 19 119/75 (90) 98 05/19/19 08:13 Room Air 05/19/19 08:00 98.1 75 18 122/63 (82) 96 05/19/19 08:00 75 05/19/19 06:00 71 131/70 05/19/19 04:00 97.7 69 18 131/70 (90) 95 05/19/19 04:00 73 05/19/19 00:00 98.1 79 18 152/86 (108) 98 05/19/19 00:00 74 05/18/19 21:24 75 122/79 05/18/19 21:00 Room Air Intake and Output 05/18/19 05/19/19 19:00 07:00 Intake Total 380 ml Output Total 900 ml Balance -520 ml Intake Oral 380 ml Output Urine Total 900 ml # Voids 3 Laboratory Tests Test 05/19/19 03:50 Troponin I 0.007 ng/mL (0.000-0.056) Height (Feet): 6 Height (Inches): 0.00 Weight (Pounds): 155 Medications Current Medications Medications (Trade) Dose Ordered Sig/Gina Route PRN Reason Start Time Stop Time Status Last Admin Dose Admin Acetaminophen (Tylenol) 650 mg Q4H PRN ORAL Mild Pain/Temp > 100.5 05/17/19 21:30 06/16/19 21:29 Aspirin (ASA) 81 mg DAILY ORAL 05/19/19 09:00 06/18/19 08:59 05/19/19 09:24 Atorvastatin Calcium (Lipitor) 80 mg BEDTIME ORAL 05/18/19 21:00 06/17/19 20:59 05/18/19 20:47 Clonidine HCl (Catapres Tab) 0.1 mg Q4H PRN ORAL sbp>170 05/18/19 16:00 06/17/19 15:59 Diltiazem HCl (Cardizem) 30 mg EVERY 8 HOURS ORAL 05/18/19 22:00 06/17/19 21:59 05/19/19 14:00 Regadenoson (Lexiscan) 0.4 mg ONCE PRN IV CARDIOLOGY 05/18/19 15:50 05/21/19 15:49 Assessment/Plan Assessment/Plan: (1) Right hip pain (2) Right hip OA seen dictated David Chris May 19, 2019 20:57
[2019-05-19] MEDS: Atorvastatin 80mg tab ORAL SCH (21:24)
[2019-05-20] VITALS: BP 142/84
--- NOTE | 2019-05-20 02:30 | Consultation ---
DATE OF CONSULTATION: 05/19/2019 CONSULTING PHYSICIAN: Laverne Wagner M.D. REFERRING PHYSICIAN: Karlos Holguin M.D. PHYSICIAN LINUX SYSTEM ADMINISTRATOR: Casie Bahena CHIEF COMPLAINT: Right hip pain. HISTORY OF PRESENT ILLNESS: This is a 53-year-old male, who is being seen on the telemetry floor of [facility] for initial pain management consultation. The patient is admitted under the care of Dr. Holguin due to chest pain, being seen by a courtroom clerk for this issue, and has been complaining of right hip pain, which he says is chronic and off and on and at this time complaining of no pain. Reports that with certain movements, his pain can increase and is reduced with medication given. We were consulted so that the patient would have adequate pain control while here in the hospital. He was started on Tylenol 650 mg tablet every 4 hours as needed for mild pain, which the patient requested at this time. PAST MEDICAL HISTORY: Coronary artery disease, hypertension, and hyperlipidemia. PAST SURGICAL HISTORY: Stent placement. SOCIAL HISTORY: He has a history of smoking tobacco and history of drug abuse. Denies alcohol abuse. ALLERGIES: No known drug allergies. MEDICATIONS: Lipitor, albuterol, aspirin, and Seroquel. REVIEW OF SYSTEMS: Denies rash, fever, chills, sweating, dizziness, drowsiness, blurred vision, sore throat, or change in hearing or weight. No shortness of breath, chest pain, palpitations, or cough. No nausea, vomiting, diarrhea, or blood in the stool or urine. No dysuria. He is complaining of right hip pain. PHYSICAL EXAMINATION: GENERAL: Alert, awake, and oriented. VITAL SIGNS: Blood pressure 141/83, heart rate 74, oxygen saturation 98%, respirations 18, and temperature 96.8 degrees Fahrenheit. HEENT: PERRLA. NECK: Range of motion is full in all directions. No tenderness to paracervical muscles. No adenopathy. LUNGS: Decreased breath sounds bilaterally. HEART: S1 and S2. Regular. ABDOMEN: Soft and nontender. BACK: Range of motion is decreased in flexion and extension. EXTREMITIES: Upper and lower extremity range of motion is reduced due to the patient's condition. No cyanosis. No clubbing. No edema. Sensory is intact. Reflexes are not obtainable. No adenopathy. ASSESSMENT AND PLAN: This is a 53-year-old male with right hip pain and right hip osteoarthritis. The patient will be continued on Tylenol as needed. The patient was discussed with Dr. Wagner and Dr. Wagner concurred. We will follow the patient. Thank you very much for the courtesy of this consultation. Laverne Wagner M.D. CALI Bahena DR: BETTY JOB#: [id number] CC:
[2019-05-20 04:00] VITALS: BP 135/76
[2019-05-20] MEDS: dilTIAZem HCl 30mg tab ORAL SCH ×2 (05:46→13:15)
--- NOTE | 2019-05-20 07:12 | NUR ---
HAND-OFF: Report given to Joseph ROWLAND RN. PATIENT RESTING IN BED, NO SIGNS OF DISTRESS NOTED.
--- NOTE | 2019-05-20 07:25 | NUR ---
NURSE NOTES: Received report from MANOLO Schultz. Patient is resting in bed, in stable condition. No s/sx of SOB, breathing is even and unlabored. Denies any presence of pain or discomfort at this time. Pt is NPO for cardiac stress test. Bed is in lowest position, brakes engaged. Call light is kept within easy reach. Will continue to monitor patient.
[2019-05-20 08:00] VITALS: BP 160/93
[2019-05-20] MEDS: Aspirin Baby 81mg ORAL SCH (08:11)
[2019-05-20 12:00] VITALS: BP 129/83
--- NOTE | 2019-05-20 13:30 | NUR ---
DISCHARGE PLANNING PATIENT HAS A DISCHARGE ORDER PENDING CLEARANCE FROM DR NERI (CARDIO) PATIENT HAS BEEN ACCEPTED AT: [facility] ROOM 35A SKILLED T: [phone] FOR NURSE TO NURSE REPORT [facility] HAS BEEN PLACED ON "WILL CALL" AND NEEDS TO BE ACTIVATED SOON DR NERI CLEARS PATIENT FOR DISCHARGE
--- NOTE | 2019-05-20 13:36 | NUR ---
NURSE NOTES: Was informed by cardiology department that Dr. Mcintosh is opting to perform a Lexiscan cardiac stress test. Dr. Mcintosh is aware of patient's history of Asthma. Pt does not have SOB or wheezing at this time. Dr. Mcintosh opting to do Lexiscan cardiac stress test instead of Dobutamine at this time. Noted. Will continue to monitor patient.
--- NOTE | 2019-05-20 15:23 | Cardiac Electrophysiology PN ---
Assessment/Plan Assessment/Plan 1. Chest pain in the patient with history of coronary artery disease and prior stent placement at [facility]. His urine toxicology is also positive for cocaine. Ruled out for myocardial infarction . Echo EF 65% Avoid beta-vaishnavi in view of active cocaine use. Keep the patient on aspirin , Cardizem and Lipitor. Awaiting records from previous cardiac catheterization at [facility]. Awaiting nuclear stress test report 2. Hypertension. On Cardizem. 3. Active cocaine use. 4. Dizziness. 5. Right hip pain status post multiple falls. The x-ray of the hip was negative. WINIFRED RN Subjective Subjective No more CP.Undergoing stress test today Objective Last 24 Hour Vital Signs Date Time Temp Pulse Resp B/P (MAP) Pulse Ox O2 Delivery O2 Flow Rate FiO2 05/20/19 12:00 72 05/20/19 12:00 97.7 71 20 129/83 (98) 97 05/20/19 09:00 Room Air 05/20/19 08:00 69 05/20/19 08:00 98.4 71 20 160/93 (115) 96 05/20/19 05:46 68 135/76 05/20/19 04:00 97.3 61 20 135/76 (95) 96 05/20/19 04:00 68 05/20/19 00:00 97.6 78 19 142/84 (103) 95 05/20/19 00:00 77 05/19/19 21:24 69 137/86 05/19/19 21:00 Room Air 05/19/19 20:00 72 05/19/19 20:00 97.0 69 20 137/86 (103) 95 05/19/19 16:00 70 05/19/19 16:00 96.8 74 18 141/83 (102) 98 Intake and Output 05/19/19 05/20/19 19:00 07:00 Intake Total 240 ml Balance 240 ml Intake Oral 240 ml # Voids 2 Microbiology Date/Time Source Procedure Growth Status 05/18/19 07:00 Nasal Nares MRSA Culture - Final NO METHICILLIN RESISTANT STAPH AUREUS... Complete 05/18/19 07:00 Rectum VRE Culture - Final NO VANCOMYCIN RESISTANT ENTEROCOCCUS ... Complete 05/18/19 07:00 Rectum - Final NO CARBAPENEM-RESISTANT ENTEROBACTERI... Complete Objective HEAD AND NECK: No JVD. LUNGS: Clear. CARDIOVASCULAR: Regular S1 and S2 with no gallop or murmur. ABDOMEN: Soft. EXTREMITIES: No pitting edema. Mateo Schafer MD May 20, 2019 15:23
[2019-05-20 16:00] VITALS: BP 111/60
--- NOTE | 2019-05-20 16:47 | Diagnostic Imaging Report ---
Indications: 53-year-old male with chest pain Technique: Single day single isotope protocol utilized. Initially, resting images obtained using IV administration 10.5 millicuries 99M technetium Myoview. Subsequently, patient underwent lexiscan stress testing. See cardiology report for details. During Lexiscan infusion, IV administration 30.4 mCi 99 M technetium Myoview. SPECT and planar images obtained. SPECT images gated to 8 phases of the cardiac cycle were also obtained, and reformatted into cine images for evaluation of ejection fraction. Comparison: none Findings: Per cardiology report, patient experienced no chest pain. Per cardiology report, resting EKG demonstrates normal sinus rhythm, cannot rule out anterior myocardial infarction. No significant ST and T-wave changes noted during infusion. Imaging demonstrates normal poststress perfusion. No fixed nor reversible poststress perfusion defects are demonstrated.. Calculated post stress ejection fraction 73%. No focal wall motion abnormality Impression: Nonischemic clinical response to pharmacologic stress, per cardiology report Nonischemic electrocardiographic response to pharmacologic stress, per cardiology report No imaging findings to suggest ischemia, at level of stress achieved. Calculated post stress ejection fraction greater than 70%
--- NOTE | 2019-05-20 18:22 | General Progress Note ---
Assessment/Plan Assessment/Plan: (1) Right hip pain (2) Right hip OA Patient to be continued on Tylenol D/w Dr. Wagner and he concurred. Subjective Date patient seen: May 20, 2019 Time patient seen: 05:45 - pm Constitutional: Reports: no symptoms HEENT: Reports: no symptoms Cardiovascular: Reports: no symptoms Respiratory: Reports: no symptoms Gastrointestinal/Abdominal: Reports: no symptoms Genitourinary: Reports: no symptoms Neurologic/Psychiatric: Reports: no symptoms Endocrine: Reports: no symptoms Hematologic/Lymphatic: Reports: no symptoms Allergies: Coded Allergies: No Known Allergies (Unverified , 03/28/19) Subjective In bed no signs of pain or distress. No new complaints at this time. Objective Last 24 Hour Vital Signs Date Time Temp Pulse Resp B/P (MAP) Pulse Ox O2 Delivery O2 Flow Rate FiO2 05/20/19 12:00 72 05/20/19 12:00 97.7 71 20 129/83 (98) 97 05/20/19 09:00 Room Air 05/20/19 08:00 69 05/20/19 08:00 98.4 71 20 160/93 (115) 96 05/20/19 05:46 68 135/76 05/20/19 04:00 97.3 61 20 135/76 (95) 96 05/20/19 04:00 68 05/20/19 00:00 97.6 78 19 142/84 (103) 95 05/20/19 00:00 77 05/19/19 21:24 69 137/86 05/19/19 21:00 Room Air 05/19/19 20:00 72 05/19/19 20:00 97.0 69 20 137/86 (103) 95 Intake and Output 05/19/19 05/20/19 19:00 07:00 Intake Total 240 ml Balance 240 ml Intake Oral 240 ml # Voids 2 Height (Feet): 6 Height (Inches): 0.00 Weight (Pounds): 155 General Appearance: no apparent distress, alert EENT: PERRL/EOMI, normal ENT inspection Neck: non-tender, normal alignment Cardiovascular: normal rate, regular rhythm Respiratory/Chest: lungs clear, normal breath sounds Abdomen: non tender, soft Edema: no edema noted Generalized Neurologic: alert, oriented x 3 Skin: warm/dry David Chris May 20, 2019 18:22
--- NOTE | 2019-05-20 18:49 | NUR ---
NURSE NOTES: Called [facility] and gave report to MANOLO Lira. Noted. Called [facility] and setup transportation for 1930. Charge nurse aware. Noted.
--- NOTE | 2019-05-20 18:50 | NUR ---
NURSE NOTES: Heart monitor returned to sugarcane research technician.
--- NOTE | 2019-05-20 19:29 | NUR ---
HAND-OFF: Report given to MANOLO Wagner.
--- NOTE | 2019-05-20 19:30 | NUR ---
NURSE NOTES: Received pt from MANOLO Borrero. Pt is awake and resting in bed in no acute distress. Will continue with plan of care.
[2019-05-20 20:00] VITALS: BP 127/70
--- NOTE | 2019-05-20 20:22 | General Progress Note ---
Assessment/Plan Problem List: (1) Chest pain ICD Codes: R07.9 - Chest pain, unspecified SNOMED: [id number] Qualifiers: Qualified Codes: R07.9 - Chest pain, unspecified Assessment/Plan: chest pain cleared for dc see dc summary for details Subjective ROS Limited/Unobtainable: Yes Allergies: Coded Allergies: No Known Allergies (Unverified , 03/28/19) Objective Last 24 Hour Vital Signs Date Time Temp Pulse Resp B/P (MAP) Pulse Ox O2 Delivery O2 Flow Rate FiO2 05/20/19 16:00 97.8 87 20 111/60 (77) 95 05/20/19 16:00 73 05/20/19 12:00 72 05/20/19 12:00 97.7 71 20 129/83 (98) 97 05/20/19 09:00 Room Air 05/20/19 08:00 69 05/20/19 08:00 98.4 71 20 160/93 (115) 96 05/20/19 05:46 68 135/76 05/20/19 04:00 97.3 61 20 135/76 (95) 96 05/20/19 04:00 68 05/20/19 00:00 97.6 78 19 142/84 (103) 95 05/20/19 00:00 77 05/19/19 21:24 69 137/86 05/19/19 21:00 Room Air Intake and Output 05/19/19 05/20/19 19:00 07:00 Intake Total 240 ml Balance 240 ml Intake Oral 240 ml # Voids 2 Height (Feet): 6 Height (Inches): 0.00 Weight (Pounds): 155 Cardiovascular: normal rate Respiratory/Chest: lungs clear Karlos Holguin MD May 20, 2019 20:22
--- NOTE | 2019-05-20 20:50 | NUR ---
Discharge: Patient is being discharged from medical care. Awake, alert and oriented x4. Patient verbalized understanding of After care instructions. Patient signed patient consent in the medical record for patient destination upon discharge. All medical devices such as IV and ID band were removed. Patient transported via ambulance transport [facility].
--- NOTE | 2019-05-22 12:37 | Discharge Summary ---
Discharge Summary Discharge Summary _ DATE OF ADMISSION: 05/17/2019 DATE OF DISCHARGE: 05/20/2019 DISCHARGED BY: Dr Holguin REASON FOR ADMISSION: 53 years old male with past medical history of HIV, hypertension, hypercholesterolemia, coronary artery disease, status post stent placement in December 2016, depression, presented with right hip pain, multiply falls, shortness of breath and vague chest pain for 3 days, aggravated with exertion and alleviated with rest. Severity reported to be moderate, but constant. Upon evaluation patient was tachycardic with heart rate 111. Otherwise patient was afebrile and pulse oximetry was stable on room air. Laboratory work-up revealed no leukocytosis, and stable hemoglobin hematocrit. Platelet count 144. BUN 23, creatinine 1.3. Stable electrolytes. Glucose 97. Troponin 0.01. EKG revealed sinus rhythm no acute ischemic changes. Urine toxicology screen was positive for cocaine. Chest x-ray revealed no acute cardiopulmonary pathology. X-ray of bilateral hip and pelvis revealed no fracture or dislocation. Patient subsequently admitted to telemetry floor for further management. CONSULTANTS: appliance fixer Dr. Acevedo pain specialist [facility] COURSE: Patient admitted to telemetry floor. Field Merchandiser is followed. Serial troponin were negative. Telemetry was negative. Patient was ruled out for acute myocardial infarction. Given history of coronary artery disease and prior stent placement at [facility], patient undergone myocardial perfusion stress test , which was nonischemic. Calculated post-rest ejection fraction was greater than 70%. Field Merchandiser recommended to avoid beta-vaishnavi , given active cocaine use. Patient was on antiplatelet therapy with aspirin, Cardizem and statin. Patient was counseled on abstinence from illicit street drugs. Patient was counseled on low-fat low-cholesterol diet. Fall precaution maintained. Patient was working with physical therapist. Pain management was addressed as per pain specialist recommendations. Current treatment with antiretroviral therapy continued. Placement was found at the [facility]. Patient clinically stabilized and was ready for discharge to the [facility] facility for continuation of care. FINAL DIAGNOSES: Chest pain in patient with history of coronary artery disease and prior stent placement Active cocaine user Hypertension Right hip pain, status post multiply falls Right hip osteoarthritis HIV disease DISCHARGE MEDICATIONS: See Medication Reconciliation list. DISCHARGE INSTRUCTIONS: Patient was discharged to the [facility] facility. Follow up with medical doctor at the facility. I have been assigned to dictate discharge summary for this account. I was not involved in the patient's management. Marie Last NP May 22, 2019 12:37
--- NOTE | 2019-05-27 15:08 | Coder Physician Query ---
Clarification is required for compliance, coding accuracy, and to reflect severity of illness for this patient Dear Dr. FIDENCIO POP Date: 05/27/2019 Bean Snipper/CDS' Name: PERRI ALFONSO CHEST PAIN QUERY - Serial troponin were negative. Telemetry was negative. Patient was ruled out for acute myocardial infarction. Given history of coronary artery disease and prior stent placement at [facility], patient undergone myocardial perfusion stress test , which was nonischemic. Calculated post-rest ejection fraction was greater than 70%. Associate Faculty recommended to avoid beta-vaishnavi , given active cocaine use. Patient was on antiplatelet therapy with aspirin, Cardizem and statin. Patient was counseled on abstinence from illicit street drugs. FINAL DIAGNOSES: Chest pain in patient with history of coronary artery disease and prior stent placement Active cocaine user Hypertension Please document the suspected etiology of Chest Pain: [] Acute Coronary Syndrome [] Pericarditis [] Anxiety [] Cancer [] Pneumonia [] Costochondritis [] Pneumothorax [] GERD/Esophagitis [] Pulmonary embolism [] Other: [] Unable to determine Physician signature Date Please also document in your Progress Notes and/or Discharge Summary and indicate if the condition was present on admission. ZULEMAD
--- NOTE | 2019-05-28 07:48 | CDS Physician Query ---
Clarification is required for compliance, coding accuracy, and to reflect severity of illness for this patient Dear Mateo Richmond MD Date 05/28/2019 Manager Hematology/CDS' Name Mayank Rubio Assessment/Plan Assessment/Plan 1. Chest pain in the patient with history of coronary artery disease and prior stent placement. His urine toxicology is also positive for cocaine. Ruled out for myocardial infarction . Echocardiogram pending. Avoid beta- vaishnavi in view of active cocaine use. Keep the patient on aspirin , Cardizem and Lipitor. Awaiting records from previous cardiac catheterization at [facility]. Scheduled for nuclear stress test in am. 2. Hypertension. On Cardizem. 3. Active cocaine use. 4. Dizziness. 5. Right hip pain status post multiple falls. The x-ray of the hip was negative. Please document the suspected etiology of Chest Pain: [] Aortic dissection [] Acute myocardial infarction [] Acute Coronary Syndrome [] Pericarditis [] Anxiety [] Cancer [] Pneumonia [] Costochondritis [] Pneumothorax [] GERD/Esophagitis [] Pulmonary embolism [] Other: [] Unable to determine Present on Admission: [] Yes [] No [] Clinically Undetermined Physician signature Date Please also document in your Progress Notes and/or Discharge Summary and indicate if the condition was present on admission. MTDD
== END 2019-05-20 20:50 | DRG 313 ==
LOC: EDBD 17:32 → EMR 17:59 → 2E 18:38 → EDBEDREQ 20:11
DX: R07.89 Other chest pain (principal); B20 Human immunodeficiency virus [HIV] disease; F14.188 Cocaine abuse with other cocaine-induced disorder; M16.11 Unilateral primary osteoarthritis, right hip; I10 Essential (primary) hypertension; E78.5 Hyperlipidemia, unspecified; Z87.891 Personal history of nicotine dependence; I25.10 Atherosclerotic heart disease of native coronary artery without angina pectoris; Z95.5 Presence of coronary angioplasty implant and graft; Z91.81 History of falling; Z79.82 Long term (current) use of aspirin; R42 Dizziness and giddiness
CPT/HCPCS: 36415; 71045; 73521; 78452; 80053; 80307; 83690; 84484; 85025; 87081; 93005; 93017; 93306; 96374; 99285; J2785

== ENCOUNTER 2019-12-05 16:50 | Emergency (ER) | payer MEDICARE, OTHER ==
[~2019-12-05] VITALS: Ht 177.8 cm; Wt 72.6 kg
[~2019-12-05 16:50] MED LIST changes: +ALBUTEROL2.5 MG/3 M INH; +LIPITOR80 MG ORAL; +LISINOPRIL20 MG ORAL; +QUETIAPINE FUMA25 MG ORAL; +TIVICAY50 MG ORAL; +descovy
[2019-12-05 17:00] VITALS: BP 166/108
--- NOTE | 2019-12-05 17:00 | NUR ---
ED Nurse Note: pt biba from bus d/t shortness of breath started 4-5 hours ago. pt satting at 95% on RA. afebrile on the scene. Pt is AOx4, calm and cooperative. placed on a room, droplet precautions initiated.
[2019-12-05] MEDS ORDERED: Albuterol ud Inhalation HHN ONE (17:45)
--- NOTE | 2019-12-05 17:48 | Emergency Room Report ---
History of Present Illness General Chief Complaint: Upper Respiratory Illness Source: EMS Present Illness HPI Disclaimer: Please note that this report is being documented using DRAGON technology. This can lead to erroneous entry secondary to incorrect interpretation by the dictating instrument. HPI: 54-year-old male history of asthma and hypertension presented with shortness of breath. Patient states he feels better now. He presented by EMS. [place]. No fevers. Denies coughing. Patient does use albuterol at baseline. He currently has all of his medications. He reports negative recent coronavirus testing. PMH: Asthma PSH: Reviewed Social Hx: Patient denies smoking Allergies: Coded Allergies: No Known Allergies (Unverified , 03/28/19) COVID-19 Screening Contact w/high risk pt: No Experienced COVID-19 symptoms?: Yes COVID-19 Testing performed [employer]ODUCTION [employer]ER: Yes COVID-19 Screening: Negative COVID-19 COVID-19 Testing Source: nasopharynx Patient History Reviewed Nursing Documentation: PMH: Agreed; PSxH: Agreed Nursing Documentation-PMH Past Medical History: No History, Except For Hx Hypertension: Yes Hx Asthma: Yes Hx Cancer: No Hx Gastrointestinal Problems: No Hx Neurological Problems: No Review of Systems All Other Systems: negative except mentioned in HPI Physical Exam Vital Signs Date Time Temp Pulse Resp B/P (MAP) Pulse Ox O2 Delivery O2 Flow Rate FiO2 12/05/19 16:48 97.7 91 20 166/108 (127) 95 Room Air Sp02 EP Interpretation: reviewed, normal General Appearance: well appearing, no apparent distress Head: normocephalic, atraumatic Eyes: bilateral eye PERRL, bilateral eye EOMI ENT: hearing grossly normal, moist mucus membranes Neck: full range of motion, supple Respiratory: lungs clear, normal breath sounds, no rhonchi, no respiratory distress, no retraction, no wheezing Cardiovascular #1: normal peripheral pulses, regular rate, rhythm, no murmur Gastrointestinal: non tender, soft, non-distended, no guarding Neurologic: alert, oriented x3, no focal defects Skin: normal color, warm/dry Medical Decision Making Diagnostic Impression: Primary Impression: History of asthma ER Course Patient presented from the bus stop complaining of shortness of breath. He was in no acute distress on my exam. He was not even wheezing. He requested a breathing treatment however at this time we are unable to to do breathing treatments without a rapid COVID testing. She does have albuterol hand-held inhaler and I recommended he continue to use this. He was not in any distress. I did give him prednisone for the next 4 days. Instructed him to avoid smoking. Aloe up PMD, given return precautions. Patient stable for discharge. He did not appear to be in a severe to be an asthma exacerbation at this time. Asthma Last Vital Signs Date Time Temp Pulse Resp B/P (MAP) Pulse Ox O2 Delivery O2 Flow Rate FiO2 12/05/19 16:48 97.7 91 20 166/108 (127) 95 Room Air Status: improved Disposition: HOME, SELF-CARE Condition: Stable Scripts Prednisone* (PREDNISONE*) 20 Mg Tablet 40 MG ORAL DAILY, #5 TAB Prov: Kirill Perry M.D. 12/05/19 Kirill Perry M.D. Dec 05, 2019 17:48
[2019-12-05] MEDS ORDERED: PREDNISONE20 MG ORAL (18:09)
[2019-12-05 18:13] VITALS: BP 152/100
--- NOTE | 2019-12-05 18:13 | NUR ---
ER DISCHARGE NOTE: Patient is cleared to be discharged per ERPA, pt is aox4, on room air, with stable vital signs. pt was given dc and prescription instructions, pt was able to verbalize understanding, pt id band removed. pt is able to ambulate with steady gait. pt took all belongings.
== END 2019-12-05 18:13 | disposition home or self-care (01) ==
LOC: EDBD 16:50 → EMR 18:00
DX: J45.909 Unspecified asthma, uncomplicated (principal); I10 Essential (primary) hypertension; Z79.51 Long term (current) use of inhaled steroids
CPT/HCPCS: 99282; J7512